=== PATIENT | male | born 1960 | race Native Hawaiian/Other Pacific Islander ===

== ENCOUNTER 2017-09-15 09:41 | Emergency (ER) | payer OTHER ==
[2017-09-15 09:46] VITALS: RESP 16; O2SAT 98
[2017-09-15 09:47] VITALS: BMI 30.2
[2017-09-15] MEDS ORDERED: Sodium Chloride 0.9% 1,000 ML IV STA (10:08)
--- NOTE | 2017-09-15 10:13 | ED PDOC ---
HPI: Abdomen Time Seen by Provider: 09/15/17 09:54 Chief Complaint (Nursing): Abdominal Pain Chief Complaint (Provider): Abdominal Pain History Per: Patient History/Exam Limitations: no limitations Onset/Duration Of Symptoms: Days (x1) Current Symptoms Are (Timing): Still Present Location Of Pain/Discomfort: LUQ, LLQ Quality Of Discomfort: "Pain" Additional Complaint(s): 56 y/o male presents with a PMHx of Kidney Stones 10 years ago and diabetes presents to the ED complaining of constant left sided abdominal pain and left flank pain associated with hematuria, nausea, and loose stools, onset one day ago. Denies vomiting. PMD: Ronaldo Quick Past Medical History Reviewed: Historical Data, Nursing Documentation, Vital Signs Vital Signs: Last Vital Signs Temp 97.2 F L 09/15/17 12:20 Pulse 88 09/15/17 12:20 Resp 16 09/15/17 12:20 BP 120/71 09/15/17 12:20 Pulse Ox 98 09/15/17 12:20 - Medical History PMH: Diabetes, Kidney Stones - Surgical History Surgical History: No Surg Hx - Family History Family History: States: Unknown Family Hx - Home Medications Home Medications: Ambulatory Orders Medication Instructions Recorded Ondansetron ODT [Zofran ODT] 4 mg PO Q8H PRN #20 odt 09/15/17 Tamsulosin [Flomax] 0.4 mg PO DAILY #14 cap 09/15/17 oxyCODONE/Acetaminophen [Percocet 1 tab PO Q6H PRN #15 tab 09/15/17 5/325 mg Tab] - Allergies Allergies/Adverse Reactions: Allergies Allergy/AdvReac Type Severity Reaction Status Date / Time No Known Allergies Allergy Verified 09/15/17 10:08 Review of Systems ROS Statement: Except As Marked, All Systems Reviewed And Found Negative Gastrointestinal: Positive for: Nausea, Abdominal Pain (left sided), Diarrhea. Negative for: Vomiting Genitourinary Male: Positive for: Hematuria Musculoskeletal: Positive for: Back Pain (left sided flank pain) Physical Exam - Reviewed Nursing Documentation Reviewed: Yes Vital Signs Reviewed: Yes - Physical Exam Appears: Positive for: No Acute Distress Head Exam: Positive for: ATRAUMATIC, NORMOCEPHALIC Skin: Positive for: Normal Color, Warm, Dry Eye Exam: Positive for: Normal appearance, EOMI, PERRL Neck: Positive for: Normal, Painless ROM Cardiovascular/Chest: Positive for: Regular Rate, Rhythm. Negative for: Murmur Respiratory: Positive for: Normal Breath Sounds. Negative for: Respiratory Distress Gastrointestinal/Abdominal: Positive for: Tenderness (mild left upper quadrant tenderness) Back: Positive for: L CVA Tenderness Extremity: Positive for: Normal ROM. Negative for: Deformity Neurologic/Psych: Positive for: Alert, Oriented (x3). Negative for: Motor/ Sensory Deficits - Laboratory Results Result Diagrams: 09/15/17 10:40 09/15/17 10:40 - ECG O2 Sat by Pulse Oximetry: 98 (RA) Pulse Ox Interpretation: Normal Medical Decision Making Medical Decision Making: Time: 101 Impression: Hematuria and flank pain Plan: -- CT Abd & Pelvis w/o PO or IV contrast -- EKG -- CMP -- ED Urine Dipstick -- CBC with differentials -- PTT -- Prothrombin Time -- Glucose, POC Routine -- Morphine 2 mg IV -- Sodium Chloride IV 1000 mls/hr -- Glucose, Blood, POC -- Urinalysis Time: 1126 CT ABD/PELVIS RESULTS FINDINGS: LOWER THORAX: Mild passive/dependent type atelectasis the inferior lower lung george. There also appears to be some minor scarring in the middle lobe and lingular regions. Heart size within range of normal. No pericardial effusion. Small hiatal hernia. LIVER: Liver is upper limits of normal in size measuring just over 18 cm in CC dimension. GALLBLADDER AND BILE DUCTS: Unremarkable. PANCREAS: Unremarkable. No gross lesion or ductal dilatation. SPLEEN: Spleen upper limits of normal in size. . ADRENALS: Note the lesions. KIDNEYS AND URETERS: There is a small approximately 3.7 mm calculus left UPJ with mild left-sided hydronephrosis. An additional 3.6 mm nonobstructing calculus lower pole collecting system left kidney. VASCULATURE: Unremarkable. No aortic aneurysm. BOWEL: Unremarkable. No obstruction. No gross mural thickening. . Note made of scattered colonic diverticula along the sigmoid colon 1 of which is rather prominent in size measuring 2.1 cm APPENDIX: Unremarkable. Normal appendix. PERITONEUM: Unremarkable. No free fluid. No free air. The there is a right-sided fat containing inguinal hernia. The urinary bladder extends slightly for distant ostia of this hernia. Small fat containing left inguinal hernia. LYMPH NODES: Unremarkable. No enlarged lymph nodes. BLADDER: As above. . No evidence of intraluminal urinary bladder calculi. REPRODUCTIVE: Unremarkable BONES: Mild multilevel degenerative spondylosis of the lower thoracic and lumbar spine. OTHER FINDINGS: None. IMPRESSION: There is a small approximately 3.7 mm obstructing calculus within the left UPJ as described with mild hydronephrosis. Note also that the distal ureter also is minimally dilated Colonic diverticula seen along the sigmoid colon one of which is prominent measuring 2.1 cm. See above discussion for additional details and findings. Scribe Attestation: Documented by Reid Trejo acting as a scribe for Dr. Karla Head MD. Provider Scribe Attestation: All medical record entries made by the Scribe were at my direction and personally dictated by me. I have reviewed the chart and agree that the record accurately reflects my personal performance of the history, physical exam, medical decision making, and the department course for this patient. I have also personally directed, reviewed, and agree with the discharge instructions and disposition. Disposition - Clinical Impression Clinical Impression: Ureteral calculus, Infection due to yeast - Disposition Referrals: Adrian Golden MD [Staff Provider] - Sumeet Patino MD [Staff Provider] - Disposition: Routine/Home Disposition Time: 11:48 Condition: IMPROVED Additional Instructions: STRAIN URINE DIRECTED. Prescriptions: Ondansetron ODT [Zofran ODT] 4 mg PO Q8H PRN #20 odt PRN Reason: Nausea/Vomiting oxyCODONE/Acetaminophen [Percocet 5/325 mg Tab] 1 tab PO Q6H PRN #15 tab PRN Reason: Pain, Severe (8-10) Tamsulosin [Flomax] 0.4 mg PO DAILY #14 cap Instructions: Kidney Stones in Adults, Renal Colic (DC), Yeast Infection (DC) Forms: [employer] ([employer]ak[employer])
[2017-09-15 11:14] LABS: ALB/GLOB RATIO 1.4 (1.0-2.1); ALBUMIN 4.7 g/dL (3.5-5.0); ALT/SGPT 78 U/L (21-72); AST/SGOT 66 U/L (17-59); BLOOD UREA NITROGEN 14 mg/dl (9-20); CALCIUM 9.5 mg/dL (8.4-10.2); GFR AFRICAN-AMERICAN > 60; GFR NON-AFRICAN AMERICAN > 60
[2017-09-15 11:15] LABS: BASO % 0.3 % (0.0-2.0); HEMOGLOBIN 14.4 g/dL (12.0-18.0); INR 1.1 (0.9-1.2); LYMPH # 1.5 K/uL (1.0-4.3); LYMPH % 16.4 % (20.0-40.0); MEAN CELL VOLUME 99.7 fl (80.0-94.0); MEAN CORPUSCULAR HGB CONC 34.1 g/dL (33.0-37.0); MEAN PLATELET VOLUME 8.4 fl (7.2-11.7); MONO # 0.4 K/uL (0.0-0.8); MONO % 4.9 % (0.0-10.0); NEUT # 7.1 K/uL (1.8-7.0); NEUT % 78.4 % (50.0-75.0); PARTIAL THROMBOPLASTIN TIME 31.8 Seconds (25.6-37.1); PROTHROMBIN TIME 12.5 Seconds (9.8-13.1); RBC 4.23 Mil/uL (4.40-5.90); RED CELL DISTRIBUTION WIDTH 12.7 % (11.5-14.5)
--- NOTE | 2017-09-15 11:27 | CT ---
Date of service: 09/15/2017 PROCEDURE: CT Abdomen and Pelvis without intravenous contrast HISTORY: L flank pain, hematuria COMPARISON: Made with CT scan abdomen pelvis 02/11/2007 [facility]. TECHNIQUE: Technique. Contrast dose: Radiation dose: Total exam DLP = mGy-cm. This CT exam was performed using one or more of the following dose reduction techniques: Automated exposure control, adjustment of the mA and/or kV according to patient size, and/or use of iterative reconstruction technique. FINDINGS: LOWER THORAX: Mild passive/dependent type atelectasis the inferior lower lung george. There also appears to be some minor scarring in the middle lobe and lingular regions. Heart size within range of normal. No pericardial effusion. Small hiatal hernia. LIVER: Liver is upper limits of normal in size measuring just over 18 cm in CC dimension. GALLBLADDER AND BILE DUCTS: Unremarkable. PANCREAS: Unremarkable. No gross lesion or ductal dilatation. SPLEEN: Spleen upper limits of normal in size. . ADRENALS: Note the lesions. KIDNEYS AND URETERS: There is a small approximately 3.7 mm calculus left UPJ with mild left-sided hydronephrosis. An additional 3.6 mm nonobstructing calculus lower pole collecting system left kidney. VASCULATURE: Unremarkable. No aortic aneurysm. BOWEL: Unremarkable. No obstruction. No gross mural thickening. . Note made of scattered colonic diverticula along the sigmoid colon 1 of which is rather prominent in size measuring 2.1 cm APPENDIX: Unremarkable. Normal appendix. PERITONEUM: Unremarkable. No free fluid. No free air. The there is a right-sided fat containing inguinal hernia. The urinary bladder extends slightly for distant ostia of this hernia. Small fat containing left inguinal hernia. LYMPH NODES: Unremarkable. No enlarged lymph nodes. BLADDER: As above. . No evidence of intraluminal urinary bladder calculi. REPRODUCTIVE: Unremarkable BONES: Mild multilevel degenerative spondylosis of the lower thoracic and lumbar spine. OTHER FINDINGS: None. IMPRESSION: There is a small approximately 3.7 mm obstructing calculus within the left UPJ as described with mild hydronephrosis. Note also that the distal ureter also is minimally dilated Colonic diverticula seen along the sigmoid colon one of which is prominent measuring 2.1 cm. See above discussion for additional details and findings.
[2017-09-15 11:38] LABS: URINE BILIRUBIN NEGATIVE (NEGATIVE); URINE BLOOD LARGE (NEGATIVE); URINE CLARITY CLOUDY (Clear); URINE COLOR RED (YELLOW); URINE GLUCOSE (UA) >=500 mg/dL (Normal); URINE LEUKOCYTE ESTERASE NEG Leu/uL (Negative); URINE PROTEIN 100 mg/dL (NEGATIVE); URINE UROBILINOGEN 0.2-1.0 mg/dL (0.2-1.0)
[2017-09-15] MEDS ORDERED: Fluconazole 150 MG TAB PO ONE (11:43)
[2017-09-15 12:21] VITALS: BP 120/71; PULSE 88; TEMP 97.2
--- NOTE | 2017-09-17 13:24 | CARD ---
APPROVED REPORT Date of service: 09/15/2017 EKG Measurement Heart [id number] <Conclusion> Normal sinus rhythm Normal ECG
== END 2017-09-15 12:22 | disposition home or self-care (01) ==
LOC: H.ER 09:41
DX: N20.1 Calculus of ureter (principal); B37.9 Candidiasis, unspecified; E11.9 Type 2 diabetes mellitus without complications
CPT/HCPCS: 74176; 80053; 81003; 82948; 85025; 85610; 85730; 93005; 96374; 99283; J2270; J7030